=== PATIENT | female | born 1950 | race Caucasian/White ===

== ENCOUNTER 2018-05-06 15:43 | Inpatient (IN) | payer MEDICARE, MEDICAID ==
[2018-05-06] VITALS (13 sets, daily range): BP systolic 113–152; BP diastolic 70–113
[~2018-05-06] VITALS: Ht 147.3 cm; Wt 46.0 kg
[~2018-05-06 15:43] MED LIST: ALPR0.25 PO; AMIT PO; AMOX500T3 PO; CARI250T PO; CYCL0.05 OP; DIPH25CA39 PO; DOCU100C8 PO; ENAL20TA93 PO; HYDR-1421 PO; IBU800T PO; LANS15CA21 PO; OYST500T29 PO; XOPENEX INH INH
[2018-05-06] MEDS ORDERED: MORPHINE SULF INJ 2 MG/ML SYRINGE 1ML ONE (15:50)
[2018-05-06] MEDS ORDERED: ONDANSETRON HCL 4 MG/2 ML VIAL ONE (15:50)
[2018-05-06] MEDS ORDERED: diphenhdrAMINE HCL 50 MG/1 ML VL ONE (15:58)
[2018-05-06] MEDS ORDERED: diphenhdrAMINE HCL 50 MG/1 ML VL IV ONE ×2 (16:15→17:15)
[2018-05-06] MEDS ORDERED: ONDANSETRON HCL 4 MG/2 ML VIAL IV ONE ×2 (16:15→17:15)
[2018-05-06] MEDS ORDERED: MORPHINE SULF INJ 2 MG/ML SYRINGE 1ML IV ONE ×2 (16:15→17:15)
[2018-05-06 16:16] LABS: Basophils # (auto) 0 uL; Basophils % (auto) 0.2 % (0.0-2.0); Eosinophils # (auto) 0 uL; Eosinophils % (auto) 0.1 % (0.0-7.0); Hematocrit 42.1 % (36.0-46.0); Hemoglobin 14.5 g/dL (12.2-16.2); Lymphocytes # (auto) 1.8 uL; Lymphocytes % (auto) 17.1 % (10.0-50.0); Mean Corpuscular Hemoglobin 31.7 pg (28.0-32.0); Mean Corpuscular Hgb Conc. 34.3 g/dL (32.0-36.0); Mean Corpuscular Volume 92.3 fL (80.0-100.0); Monocytes # (auto) 0.6 uL; Monocytes % (auto) 5.8 % (0.0-12.0); Neutrophils % (auto) 76.8 % (37.0-80.0); Nucleated Red Blood Cells % 0.1 %; Platelet Count (auto) 195 10^3/uL (140-450); Red Blood Cells 4.56 10^6/uL (4.0-5.20); Red Cell Distribution Width 13.9 % (11.8-14.3); White Blood Cell 10.4 10^3/uL (4.4-10.8)
[2018-05-06 16:34] LABS: Albumin 4.1 g/dL (3.4-5.0); BUN/Creatinine Ratio 13.8; Bilirubin, Total 0.4 mg/dL (0.2-1.0); Magnesium 2.8 mg/dL (1.6-2.6); Total Protein 7.7 g/dL (6.4-8.2)
[2018-05-06] MEDS ORDERED: QUET50TA PO (16:38)
[2018-05-06] MEDS ORDERED: METO-169 PO (16:38)
[2018-05-06] MEDS ORDERED: HYDR-531 PO (16:40)
[2018-05-06] MEDS ORDERED: TRAM50TA2 PO (16:41)
[2018-05-06] MEDS ORDERED: ZOLP10TA PO (16:45)
[2018-05-06] MEDS ORDERED: METH750T3 PO (16:46)
[2018-05-06] MEDS ORDERED: NITROGLYCERIN 0.4 MG SL TAB SL ONE (17:30)
[2018-05-06] MEDS ORDERED: POTASSIUM CHL 20 Meq TABLET PO ONE (18:15)
[2018-05-06] MEDS ORDERED: ASPirin 325 MG TAB PO ONE (18:15)
[2018-05-06] MEDS ORDERED: HEPARIN SODIUM (PORCINE) 5000 UNITS/ML 1ML VIAL IV ONE (18:15)
[2018-05-06] MEDS ORDERED: HEPARIN DRIP/D5W 100UNITS/ML 250 ML IV SCH (18:15)
[2018-05-06] MEDS ORDERED: HEPARIN SODIUM (PORCINE) 5000 UNITS/ML 1ML VIAL ONE (18:23)
[2018-05-06] MEDS: NITROGLYCERIN 50MG/250ML 250 ML IV SCH (18:28)
[2018-05-06] MEDS ORDERED: TEMAZEPAM 15 MG CAP PO PRN (18:45)
[2018-05-06] MEDS ORDERED: HYDROcodone-ACET 5/325MG TAB PO PRN (18:45)
[2018-05-06] MEDS ORDERED: DEXTROSE (50%) 50ML SYRG IV PRN (18:45)
[2018-05-06] MEDS ORDERED: NITROGLYCERIN 0.4 MG SL TAB SL PRN (18:45)
[2018-05-06] MEDS ORDERED: ALBUTEROL SULF 2.5 MG/0.5ML(0.5%) NEB SOLN NEB PRN (18:45)
[2018-05-06] MEDS ORDERED: LACTULOSE 20Gm/30ML SOLN PO PRN (18:45)
[2018-05-06] MEDS ORDERED: LORazepam 2MG/ML-1ML VIAL IV PRN (18:45)
[2018-05-06] MEDS ORDERED: MORPHINE SULF INJ 2 MG/ML SYRINGE 1ML IV PRN (18:45)
[2018-05-06] MEDS ORDERED: traMADol HCL 50 MG TAB PO PRN (18:45)
[2018-05-06 19:08] LABS: Prothrombin Time 10.7 sec (9.27-12.13)
[2018-05-06 19:27] LABS: Urine WBC None Seen /hpf (0 - 5)
[2018-05-06 19:38] LABS: Urine Bacteria NONE SEEN /hpf (None Seen); Urine Blood Negative /uL (Negative); Urine Specific Gravity 1.012 (1.001-1.035)
[2018-05-06] MEDS: SODIUM CHLORIDE 0.9% 1,000 ML IV SCH (19:45)
[2018-05-06 19:47] LABS: Alcohol, Urine < 3.0 mg/dL (0-5); Amphetamine Screen, Urine NEGATIVE (NEGATIVE); Barbiturate Scree,Urine NEGATIVE (NEGATIVE); Benzodiazephine Screen, Urine POSITIVE (NEGATIVE); Cannabinoid Screen, Urine NEGATIVE (NEGATIVE); Cocaine Screen, Urine NEGATIVE (NEGATIVE); Opiate Scree,Urine NEGATIVE (NEGATIVE); Phencyclidine Screen, Urine NEGATIVE (NEGATIVE)
[2018-05-06] MEDS: MORPHINE SULF INJ 2 MG/ML SYRINGE 1ML IV PRN (20:25)
[2018-05-06] MEDS: ONDANSETRON HCL 4 MG/2 ML VIAL IV PRN (20:25)
[2018-05-06 20:40] LABS: INR 1.13 (0.9-1.15)
[2018-05-06 20:49] LABS: Partial Thromboplastin Time > 170.00 sec (23.78-33.04)
[2018-05-06] MEDS: ENALAPRIL MALEATE 10 MG TAB PO SCH (22:00)
[2018-05-06] MEDS: ATORVASTATIN 20 MG TAB PO SCH (22:00)
[2018-05-06] MEDS: ZOLPIDEM TARTRATE 5 MG TAB PO SCH (22:00)
[2018-05-06] MEDS: CARISOPRODOL 350 MG TAB PO SCH (22:00)
[2018-05-06] MEDS: CYCLOSPORINE 0.05% OP SCH (22:00)
[2018-05-06] MEDS: DOCUSATE SOD 100 MG CAP PO SCH (22:00)
[2018-05-06] MEDS: QUEtiapine FUMARATE 100 MG TAB PO SCH (22:00)
[2018-05-06] MEDS: ALPRAZolam 0.5 MG TAB PO SCH (22:00)
[2018-05-06] MEDS: EYE OP SCH (22:00)
[2018-05-06] MEDS: ACCU-CHEK COMFORT CURVE STRIP VI SCH (23:00)
[2018-05-06] MEDS: InsuLIN REG 1unit/0.01ml Soln (100units/ml) SC SCH (23:00)
[2018-05-07] VITALS (91 sets, daily range): BP systolic 78–200; BP diastolic 40–130
[2018-05-07 00:57] LABS: INR 1.06 (0.9-1.15); Prothrombin Time 11.3 sec (9.27-12.13)
[2018-05-07 01:02] LABS: Partial Thromboplastin Time 108.5 sec (23.78-33.04)
[2018-05-07 04:44] LABS: Cholesterol 185 mg/dL (< 200); HDL Cholesterol 50 mg/dL (40-59); LDL Cholesterol 132 mg/dL (< 100); Triglycerides 89 mg/dL (< 150)
[2018-05-07] MEDS: ACCU-CHEK COMFORT CURVE STRIP VI SCH ×4 (07:00→21:31)
[2018-05-07] MEDS: CARISOPRODOL 350 MG TAB PO SCH ×3 (08:00→22:40)
[2018-05-07] MEDS: SODIUM CHLORIDE 0.9% 1,000 ML IV SCH (08:00)
[2018-05-07] MEDS: InsuLIN REG 1unit/0.01ml Soln (100units/ml) SC SCH ×4 (08:00→21:42)
[2018-05-07] MEDS: EYE OP SCH ×3 (08:00→22:00)
[2018-05-07] MEDS: CYCLOSPORINE 0.05% OP SCH ×3 (08:00→22:00)
[2018-05-07] MEDS ORDERED: LORazepam 2MG/ML-1ML VIAL IV ONE (08:45)
[2018-05-07] MEDS ORDERED: VERAPAMIL 2.5MG/ML INJ 2ML VIAL IV ONE (09:16)
[2018-05-07] MEDS ORDERED: ANGIOMAX 250 MG VIAL IV ONE (09:16)
[2018-05-07] MEDS ORDERED: SODIUM CHL 0.9% 50 ML ONE (09:17)
[2018-05-07] MEDS ORDERED: fentaNYL CITRATE 100 MCG/2 ML VL ONE (09:17)
[2018-05-07] MEDS ORDERED: MIDAZOLAM HCL 1MG/1ML-2 ML VIAL ONE (09:17)
[2018-05-07] MEDS ORDERED: ATROPINE SULF 1 MG/10ml SYR ONE (09:18)
[2018-05-07] MEDS ORDERED: EPINEPHrine HCL 1 MG/10 ML SYRG ONE (09:18)
[2018-05-07] MEDS ORDERED: EPTIFIBATIDE INJ (2MG/ML) 10ML VIAL IV ONE (09:18)
[2018-05-07] MEDS ORDERED: IODIXANOL 320MG/ML 100ML BTL IV ONE (09:19)
[2018-05-07] MEDS ORDERED: LIDOCAINE 2% (LOCAL ANESTH.) PF 5ml SDV ONE (09:19)
[2018-05-07] MEDS ORDERED: OPTISON 3ml Vial for INJ IV ONE (09:20)
[2018-05-07] MEDS: ASPirin 325 MG TAB PO SCH (10:00)
[2018-05-07] MEDS: DOCUSATE SOD 100 MG CAP PO SCH ×2 (10:00→22:00)
[2018-05-07] MEDS ORDERED: ASPirin 81 mg TAB PO SCH ×2 (10:00)
[2018-05-07] MEDS: PANTOPRAZOLE 40 MG TAB PO SCH (10:00)
[2018-05-07] MEDS: METOPROLOL SUCCINATE XL 50 MG TAB PO SCH (10:00)
[2018-05-07] MEDS: ALPRAZolam 0.5 MG TAB PO SCH ×2 (10:00→21:29)
[2018-05-07] MEDS: ENALAPRIL MALEATE 10 MG TAB PO SCH ×2 (10:00→21:30)
[2018-05-07] MEDS ORDERED: TICAGRELOR 90 MG TAB ONE (10:33)
[2018-05-07] MEDS: ONDANSETRON HCL 4 MG/2 ML VIAL IV PRN ×2 (12:50→20:27)
[2018-05-07] MEDS: NITROGLYCERIN 50MG/250ML 250 ML IV SCH (13:45)
[2018-05-07] MEDS: MORPHINE SULF INJ 2 MG/ML SYRINGE 1ML IV PRN ×2 (16:28→20:27)
[2018-05-07] MEDS ORDERED: AMITRIPTYLINE HCL 10 MG TAB PO SCH (18:00)
[2018-05-07] MEDS ORDERED: CLOPIDOGREL 300 MG TAB PO ONE (20:00)
[2018-05-07] MEDS: ACETAMINOPHEN 500 MG TAB PO PRN (20:26)
[2018-05-07] MEDS: ATORVASTATIN 20 MG TAB PO SCH (21:30)
[2018-05-07] MEDS: ZOLPIDEM TARTRATE 5 MG TAB PO SCH (21:31)
[2018-05-07] MEDS: AMITRIPTYLINE HCL 25 MG TAB PO SCH (21:31)
[2018-05-07] MEDS: QUEtiapine FUMARATE 100 MG TAB PO SCH (22:00)
[2018-05-07] MEDS ORDERED: diphenhdrAMINE HCL 50 MG/1 ML VL IV PRN (22:30)
[2018-05-07] MEDS ORDERED: diphenhdrAMINE HCL 50 MG/1 ML VL ONE (22:39)
[2018-05-07] MEDS ORDERED: PROMETHAZINE HCL 25 MG/ML 1ML IV ONE (23:00)
[2018-05-08] VITALS (53 sets, daily range): BP systolic 103–156; BP diastolic 45–93
[2018-05-08] MEDS: CYCLOSPORINE 0.05% OP SCH ×3 (06:00→21:26)
[2018-05-08] MEDS: EYE OP SCH ×3 (06:00→21:26)
[2018-05-08] MEDS: CARISOPRODOL 350 MG TAB PO SCH (06:00)
[2018-05-08] MEDS: SODIUM CHLORIDE 0.9% 1,000 ML IV SCH (06:49)
[2018-05-08] MEDS: InsuLIN REG 1unit/0.01ml Soln (100units/ml) SC SCH ×4 (07:00→21:27)
[2018-05-08] MEDS: ACCU-CHEK COMFORT CURVE STRIP VI SCH ×4 (07:27→21:27)
[2018-05-08] MEDS ORDERED: PROMETHAZINE HCL 25 MG/ML 1ML IV PRN (08:15)
[2018-05-08] MEDS: DOCUSATE SOD 100 MG CAP PO SCH ×2 (10:00→21:26)
[2018-05-08] MEDS: ALPRAZolam 0.5 MG TAB PO SCH ×2 (10:05→21:27)
[2018-05-08] MEDS: CLOPIDOGREL BISULFATE 75 MG TAB PO SCH (10:05)
[2018-05-08] MEDS: PANTOPRAZOLE 40 MG TAB PO SCH (10:05)
[2018-05-08] MEDS: METOPROLOL SUCCINATE XL 50 MG TAB PO SCH (10:06)
[2018-05-08] MEDS: ASPirin 325 MG TAB PO SCH (10:06)
[2018-05-08] MEDS: ENALAPRIL MALEATE 10 MG TAB PO SCH ×2 (10:52→21:27)
[2018-05-08] MEDS: diphenhdrAMINE HCL 25 MG CAP PO PRN (10:53)
[2018-05-08] MEDS: traMADol HCL 50 MG TAB PO PRN ×2 (10:54→20:07)
[2018-05-08] MEDS ORDERED: CARISOPRODOL 350 MG TAB PO PRN (15:00)
[2018-05-08] MEDS: ZOLPIDEM TARTRATE 5 MG TAB PO SCH (21:26)
[2018-05-08] MEDS: AMITRIPTYLINE HCL 25 MG TAB PO SCH (21:27)
[2018-05-08] MEDS: QUEtiapine FUMARATE 100 MG TAB PO SCH (21:27)
[2018-05-08] MEDS: ATORVASTATIN 20 MG TAB PO SCH (21:27)
[2018-05-09] VITALS (7 sets, daily range): BP systolic 96–147; BP diastolic 35–90
[2018-05-09 05:19] LABS: Albumin 2.7 g/dL (3.4-5.0); BUN/Creatinine Ratio 23.1; Calcium 7.5 mg/dL (8.5-10.1); Potassium 3.7 mmol/L (3.5-5.1)
[2018-05-09 05:22] LABS: Bilirubin, Total 0.3 mg/dL (0.2-1.0); Total Protein 5.4 g/dL (6.4-8.2)
[2018-05-09] MEDS: CYCLOSPORINE 0.05% OP SCH ×3 (06:00→22:00)
[2018-05-09] MEDS: EYE OP SCH ×3 (06:00→22:00)
[2018-05-09] MEDS: InsuLIN REG 1unit/0.01ml Soln (100units/ml) SC SCH ×4 (06:43→21:59)
[2018-05-09] MEDS: ACCU-CHEK COMFORT CURVE STRIP VI SCH ×4 (06:43→22:00)
[2018-05-09] MEDS: DOCUSATE SOD 100 MG CAP PO SCH ×2 (10:00→22:00)
[2018-05-09 10:29] LABS: Basophils # (auto) 0 uL; Basophils % (auto) 0.3 % (0.0-2.0); Eosinophils # (auto) 0.2 uL; Eosinophils % (auto) 2.7 % (0.0-7.0); Hematocrit 37.9 % (36.0-46.0); Hemoglobin 12.8 g/dL (12.2-16.2); Lymphocytes # (auto) 2.7 uL; Lymphocytes % (auto) 34.6 % (10.0-50.0); Mean Corpuscular Hemoglobin 31.3 pg (28.0-32.0); Mean Corpuscular Hgb Conc. 33.7 g/dL (32.0-36.0); Monocytes # (auto) 0.6 uL; Monocytes % (auto) 8.3 % (0.0-12.0); Neutrophils # (auto) 4.2 uL; Neutrophils % (auto) 54.1 % (37.0-80.0); Nucleated Red Blood Cells % 0.1 %; Platelet Count (auto) 165 10^3/uL (140-450); Red Blood Cells 4.07 10^6/uL (4.0-5.20); Red Cell Distribution Width 14.1 % (11.8-14.3); White Blood Cell 7.8 10^3/uL (4.4-10.8)
[2018-05-09] MEDS: ALPRAZolam 0.5 MG TAB PO SCH ×2 (11:01→21:46)
[2018-05-09] MEDS: ASPirin 325 MG TAB PO SCH (11:01)
[2018-05-09] MEDS: CLOPIDOGREL BISULFATE 75 MG TAB PO SCH (11:01)
[2018-05-09] MEDS: PANTOPRAZOLE 40 MG TAB PO SCH (11:01)
[2018-05-09] MEDS: ENALAPRIL MALEATE 10 MG TAB PO SCH ×2 (11:03→21:53)
[2018-05-09] MEDS: diphenhdrAMINE HCL 25 MG CAP PO PRN (11:09)
[2018-05-09] MEDS: ACETAMINOPHEN 500 MG TAB PO PRN (17:55)
[2018-05-09] MEDS: ATORVASTATIN 20 MG TAB PO SCH (21:45)
[2018-05-09] MEDS: ZOLPIDEM TARTRATE 5 MG TAB PO SCH (21:46)
[2018-05-09] MEDS: traMADol HCL 50 MG TAB PO PRN (21:59)
[2018-05-09] MEDS: AMITRIPTYLINE HCL 25 MG TAB PO SCH (21:59)
[2018-05-09] MEDS: QUEtiapine FUMARATE 100 MG TAB PO SCH (22:00)
[2018-05-10] VITALS: BP 141/71
[2018-05-10 04:00] VITALS: BP 139/94
[2018-05-10] MEDS: EYE OP SCH ×2 (06:00→13:58)
[2018-05-10] MEDS: CYCLOSPORINE 0.05% OP SCH ×2 (06:00→13:58)
[2018-05-10] MEDS: ACCU-CHEK COMFORT CURVE STRIP VI SCH ×2 (06:31→11:50)
[2018-05-10] MEDS: InsuLIN REG 1unit/0.01ml Soln (100units/ml) SC SCH ×2 (06:31→11:30)
[2018-05-10 07:30] VITALS: BP 153/92
[2018-05-10] MEDS: DOCUSATE SOD 100 MG CAP PO SCH (09:56)
[2018-05-10] MEDS: ASPirin 325 MG TAB PO SCH (09:57)
[2018-05-10] MEDS: CLOPIDOGREL BISULFATE 75 MG TAB PO SCH (09:57)
[2018-05-10] MEDS: PANTOPRAZOLE 40 MG TAB PO SCH (09:57)
[2018-05-10] MEDS: ENALAPRIL MALEATE 10 MG TAB PO SCH (09:58)
[2018-05-10] MEDS: ALPRAZolam 0.5 MG TAB PO SCH (09:59)
[2018-05-10] MEDS ORDERED: METOPROLOL TARTRATE 25 MG TAB PO SCH (10:00)
[2018-05-10 12:00] VITALS: BP 147/85
[2018-05-10 14:22] VITALS: BP 147/85
[2018-05-10 16:05] VITALS: BP 140/83
== END 2018-05-10 17:49 | disposition home or self-care (01) | DRG 246 ==
LOC: ER 15:43 → EDBD 15:43 → OVERFLOW 15:44 → ICU WEST 21:12 → DOU IN ICU 05-08 21:41
PROVIDERS: ADMIT Internal Medicine; ATTEND Family Medicine
PROC: 4A023N7 Measurement of Cardiac Sampling and Pressure, Left Heart, Percutaneous Approach (ICD-10-PCS; principal; 2018-05-07)
PROC: 027034Z Dilation of Coronary Artery, One Artery with Drug-eluting Intraluminal Device, Percutaneous Approach (ICD-10-PCS; 2018-05-07)
PROC: B2111ZZ Fluoroscopy of Multiple Coronary Arteries using Low Osmolar Contrast (ICD-10-PCS; 2018-05-07)
DX: I21.4 Non-ST elevation (NSTEMI) myocardial infarction (principal); I50.31 Acute diastolic (congestive) heart failure; E87.1 Hypo-osmolality and hyponatremia; R64 Cachexia; I11.0 Hypertensive heart disease with heart failure; E87.6 Hypokalemia; E03.9 Hypothyroidism, unspecified; E11.9 Type 2 diabetes mellitus without complications; E78.00 Pure hypercholesterolemia, unspecified; F32.9 Major depressive disorder, single episode, unspecified; F41.9 Anxiety disorder, unspecified; G47.00 Insomnia, unspecified; I25.10 Atherosclerotic heart disease of native coronary artery without angina pectoris; J44.9 Chronic obstructive pulmonary disease, unspecified; K44.9 Diaphragmatic hernia without obstruction or gangrene; Z79.4 Long term (current) use of insulin; Z79.899 Other long term (current) drug therapy; Z80.0 Family history of malignant neoplasm of digestive organs; Z82.0 Family history of epilepsy and other diseases of the nervous system; Z82.49 Family history of ischemic heart disease and other diseases of the circulatory system; Z83.3 Family history of diabetes mellitus; Z86.73 Personal history of transient ischemic attack (TIA), and cerebral infarction without residual deficits; Z90.710 Acquired absence of both cervix and uterus; I50.9 Heart failure, unspecified; Z68.21 Body mass index [BMI] 21.0-21.9, adult; Z88.6 Allergy status to analgesic agent; Z88.0 Allergy status to penicillin
CPT/HCPCS: 36415; 71045; 80053; 80061; 80307; 81001; 82550; 82962; 83036; 83735; 83880; 84443; 84484; 85025; 85610; 85652; 85730; 86141; 87081; 87493; 92928; 93005; 93306; 93458; 94640; 96365; 96375; 99152; A6257; C1874; J1815; J2001; J2250; J2405; Q9956; Q9967